=== PATIENT | male | born 1980 | race Caucasian/White ===

== ENCOUNTER 2016-07-25 19:46 | Emergency (ER) | payer MEDICARE ==
[2016-07-25] MEDS ORDERED: Sodium Chloride 0.9% 1000 ML 1,000 ML ONE (20:07)
[2016-07-25 20:24] LABS: COMPLETE URINE MICROSCOPIC? NO; Collection Type CLEAN CATCH
[2016-07-25] MEDS ORDERED: Hydromorphone 1 mg/ml Ampule IV ONE (20:29)
[2016-07-25] MEDS ORDERED: Sodium Chloride 0.9% 1000 ML 1,000 ML IV STA (20:29)
[2016-07-25] MEDS ORDERED: PROTONIX 40 MG IV IV ONE ×2 (20:29→21:07)
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
[2016-07-25 21:05] LABS: BASOPHIL % 0.1 % (0.0-0.4); Eosinophil % 1.5 % (0.00-5.0); Granulocytes % 64.7 % (36.0-66.0); Mean Cell Volume 92.9 fl (78-100); Mean Corpuscular Hemoglobin 31.6 pg (26-32); Mean Platelet Volume 10.5 fl (6-9.5); Monocytes % 10.7 % (0.0-12.0); Platelet Count 169 K/mm3 (150-450); Red Blood Count 4.53 M/mm3 (4.1-5.6); Red Cell Distribution Width 12.5 % (11.5-14.0); White Blood Count 7.8 K/mm3 (4.0-10.5)
[2016-07-25] MEDS ORDERED: Hydromorphone 1 mg/ml Ampule ONE (21:07)
[2016-07-25 21:30] LABS: ALBUMIN 3.6 g/dL (3.4-5.0); ALKALINE PHOSPHATASE 111 U/L (46-116); ANION GAP 12.5 MEQ/L (5-15); BILIRUBIN,TOTAL 0.2 mg/dL (0.2-1.0); BLOOD UREA NITROGEN 6 mg/dL (9-20); CHLORIDE 108 mEq/L (98-107); Carbon Dioxide 25.7 mEq/L (21-32); Glucose 103 MG/DL (70-110); LIPASE 71 U/L (73-393); Potassium 3.7 mEq/L (3.5-5.1); SGOT/AST 13 U/L (15-37); SGPT/ALT 12 U/L (12-78); SODIUM 143 mEq/L (136-145); Total Protein 6.6 gm/dL (6.4-8.2)
[2016-07-25] MEDS ORDERED: Phenergan 25 MG INJ IV ONE (23:12)
[2016-07-25] MEDS ORDERED: Phenergan 25 MG INJ ONE (23:18)
[2016-07-26 00:17] VITALS: BP 134/78; PULSE 87; O2SAT 96
--- NOTE | 2016-07-26 08:28 | XRAY ---
Indication: Right lower quadrant pain, nausea, vomiting, and diarrhea. History of Crohn's disease. Multiple contiguous axial images obtained through the abdomen and pelvis using 80 cc Isovue 370 contrast only. Comparison: October 04, 2015. Lung bases demonstrates minimal bibasilar dependent atelectasis. No consolidation or effusion. Heart is not enlarged. Noncontrasted stomach and bowel loops appear nonobstructed. There is again mild/moderate scattered colonic fecal debris throughout. No bowel wall thickening. Normal air-filled appendix. No free fluid/air. Stable hepatic hemangioma, nonobstructing left renal microcalculus, and right renal cyst. Remaining liver, gallbladder, pancreas, spleen, adrenal glands, kidneys, ureters, bladder, and aorta appear unremarkable. Osseous structures intact. Impression: 1. Again fecal stasis without obstruction. 2. Stable nonobstructing left renal microcalculus, right renal cyst, and hepatic hemangioma. 3. No new or acute intra-abdominal/pelvic abnormalities. Comment: Preliminary interpretation was made by [facility]. No discrepancy. CTDI 17.00
== END 2016-07-26 00:10 | disposition home or self-care (01) ==
LOC: ED 19:46
DX: N20.0 Calculus of kidney (principal); K59.00 Constipation, unspecified; K50.90 Crohn's disease, unspecified, without complications; R10.84 Generalized abdominal pain; R11.10 Vomiting, unspecified
CPT/HCPCS: 36000; 36415; 74177; 80053; 80307; 81002; 82150; 82272; 83690; 85025; 87040; 96360; 96374; 96375; 99283; 99284; J1170; J2550

== ENCOUNTER 2016-08-20 22:27 | Emergency (ER) | payer MEDICARE ==
[2016-08-20] MEDS ORDERED: Sodium Chloride 0.9% 1000 ML 1,000 ML IV STA (23:10)
[2016-08-20] MEDS ORDERED: MORPHINE SULFATE 4 MG INJ IV ONE (23:16)
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
[2016-08-20] MEDS ORDERED: Phenergan 25 MG INJ IM ONE (23:18)
[2016-08-20 23:34] LABS: BASOPHIL % 0.2 % (0.0-0.4); Eosinophil % 2.1 % (0.00-5.0); Granulocytes % 64.2 % (36.0-66.0); Lymphocytes % 20.2 % (24.0-44.0); Mean Cell Volume 92.7 fl (78-100); Mean Corpuscular Hemoglobin 31.6 pg (26-32); Mean Platelet Volume 11.2 fl (6-9.5); Monocytes % 13.3 % (0.0-12.0); Platelet Count 110 K/mm3 (150-450); Red Cell Distribution Width 12.8 % (11.5-14.0); White Blood Count 5.3 K/mm3 (4.0-10.5)
[2016-08-20] MEDS ORDERED: Phenergan 25 MG INJ ONE (23:37)
[2016-08-20] MEDS ORDERED: Sodium Chloride 0.9% 1000 ML 1,000 ML ONE (23:37)
[2016-08-20] MEDS ORDERED: MORPHINE SULFATE 4 MG INJ ONE (23:37)
[2016-08-20 23:58] LABS: ALBUMIN 3.6 g/dL (3.4-5.0); ALKALINE PHOSPHATASE 94 U/L (46-116); ANION GAP 14.2 MEQ/L (5-15); BLOOD UREA NITROGEN 8 mg/dL (9-20); CHLORIDE 106 mEq/L (98-107); Carbon Dioxide 23.6 mEq/L (21-32); Glucose 108 MG/DL (70-110); LIPASE 87 U/L (73-393); Potassium 3.9 mEq/L (3.5-5.1); SGOT/AST 12 U/L (15-37); SGPT/ALT 14 U/L (12-78); SODIUM 140 mEq/L (136-145); Total Protein 6.3 gm/dL (6.4-8.2)
[2016-08-21] LABS: BILIRUBIN,TOTAL < 0.1 mg/dL (0.2-1.0)
[2016-08-21 00:21] LABS: COMPLETE URINE MICROSCOPIC? NO; Collection Type CLEAN CATCH; Ph 6.5 (5-6)
[2016-08-21] MEDS ORDERED: MORPHINE SULFATE 4 MG INJ IV ONE (00:35)
[2016-08-21] MEDS ORDERED: MORPHINE SULFATE 4 MG INJ ONE (00:38)
[2016-08-21 00:44] VITALS: BP 104/63; PULSE 88; O2SAT 97
== END 2016-08-21 01:00 | disposition home or self-care (01) ==
LOC: ED 22:27
DX: R10.30 Lower abdominal pain, unspecified (principal); R11.2 Nausea with vomiting, unspecified; K50.90 Crohn's disease, unspecified, without complications; I10 Essential (primary) hypertension; K58.9 Irritable bowel syndrome, unspecified
CPT/HCPCS: 36000; 36415; 80053; 80307; 81002; 82150; 82272; 83690; 85025; 96360; 96372; 96374; 96376; 99284; J2270; J2550

== ENCOUNTER 2016-09-24 21:47 | Emergency (ER) | payer MEDICARE ==
[2016-09-24] MEDS ORDERED: Sodium Chloride 0.9% 1000 ML 1,000 ML IV STA (22:17)
[2016-09-24] MEDS ORDERED: Phenergan 25 MG INJ IV ONE (22:17)
[2016-09-24] MEDS ORDERED: Hydromorphone 1 mg/ml Ampule IV ONE (22:17)
--- NOTE | 2016-09-24 22:27 | ERPHSYRPT ---
- History of Present Illness Time Seen by Provider: 09/24/16 22:11 Historian: patient, other (N.N.) Exam Limitations: no limitations Patient Subjective Stated Complaint: pt states he has been having difficulty urinating and has been vomiting blood today. Triage Nursing Assessment: pt alert and oriented, answers questions approp. pt ambulatory with steady gait noted. respirations nonlabored with lungs cta. abd soft and tender to touch with bowel sounds present. Physician History: FOR THE PAST 2 DAYS PT HAS HAD RLQ ABDOMINAL PAIN, VOMITED X5 WITH SOME BLOOD AND HAS BEEN HAVING SOME DIFFICULTY URINATING. CHEST PAIN, SHORTNESS OF AIR, HEADACHE ALL DENIED. LAST BM WAS YESTERDAY AND NOT DIARRHEAL. Allergies/Adverse Reactions: ketorolac tromethamine [From Toradol] Allergy (Mild, Verified 09/24/16 22:17) metronidazole [From Flagyl] Allergy (Mild, Verified 09/24/16 22:17) Metronidazole HCl [From Flagyl] Allergy (Mild, Verified 09/24/16 22:17) Home Medications: Alprazolam [Xanax] 2 mg PO TID 02/04/14 [History] Mirtazapine [Remeron] 30 mg PO HS 02/04/14 [History] Promethazine HCl 25 mg [Phenergan 25 mg] 25 mg PO Q6H PRN PRN 02/04/14 [ History] Ranitidine HCl 300 mg PO DAILY 02/04/14 [History] Haloperidol 1 mg [Haldol 1 mg] 5 mg PO TID 11/22/15 [History] Hydrocodone/Acetaminophen [Vicodin Es 7.5-300 mg Tablet] 2 each PO BID 07/25/16 [History] Hx Tetanus, Diphtheria Vaccination/Date Given: Yes Hx Influenza Vaccination/Date Given: Yes Hx Pneumococcal Vaccination/Date Given: Yes Immunizations Up to Date: Yes - Review of Systems Constitutional: No Fever Respiratory: No Dyspnea Cardiac: No Chest Pain Abdominal/Gastrointestinal: Abdominal Pain, Vomiting Genitourinary Symptoms: Other (DIFFICULTY URINATING) Neurological: No Headache All Other Systems: Reviewed and Negative - Past Medical History Pertinent Past Medical History: Yes Neurological History: No Pertinent History ENT History: No Pertinent History Cardiac History: No Pertinent History Respiratory History: No Pertinent History Endocrine Medical History: No Pertinent History Musculoskeletal History: Other GI Medical History: Crohns Disease, Esophageal Disorder, Irritable Bowel, Ulcer , Other History: No Pertinent History Psycho-Social History: No Pertinent History Male Reproductive Disorders: Testicular Cancer Other Medical History: CELIACS DISEASE - PARKER'S ESOPHAGUS - Past Surgical History Past Surgical History: Yes Neuro Surgical History: No Pertinent History Cardiac: No Pertinent History Respiratory: No Pertinent History Gastrointestinal: No Pertinent History Genitourinary: No Pertinent History Musculoskeletal: Amputation, Orthopedic Surgery Male Surgical History: Vasectomy Other Surgical History: TRAUMATIC ARM REPAIR - RIGHT TESTICLE REMOVAL, amputation left arm - Social History Smoking Status: Current every day smoker How long have you smoked: 20 yrs Exposure to second hand smoke: Yes Drug Use: none Patient Lives Alone: No - Nursing Vital Signs Nursing Vital Signs: Initial Vital Signs Temperature 99.4 F Temperature Source Oral Pulse Rate 84 Respiratory Rate 20 Blood Pressure [Right Arm] 126/76 Pain Intensity 6 - Physical Exam General Appearance: alert Eye Exam: PERRL/EOMI Ears, Nose, Throat Exam: pharynx normal Neck Exam: normal inspection Respiratory Exam: lungs clear Cardiovascular Exam: normal heart sounds Gastrointestinal/Abdomen Exam: tenderness (MODERATE DIFFUSE ABDOMINAL TENDERNESS ), other (B.S. MODERATELY HYPERACTIVE AND NORMOTONIC) Back Exam: normal range of motion Extremity Exam: other (LEFT ARM AMPUTEE) Neurologic Exam: alert, cooperative Skin Exam: warm, dry SpO2 Interpretation: normal SpO2: 98 Oxygen Delivery: Room Air - Course Nursing assessment & vital signs reviewed: Yes - CT Exams Abdomen/Pelvis CT Interpretation: Tele-radiologist Report (NEGATIVE FOR HYDRONEPHROSIS OR OBSTRUCTING CALCULUS. LEFT KIDNEY NONOBSTRUCTIVE RENAL CALYCEAL STONE. CONSTIPATION.) Ordered Tests: Active Orders 24 hr Category Date Time Status Clean Catch Urine Specimen STAT Care 09/24/16 22:17 Active IV Insertion STAT Care 09/24/16 22:17 Active ABDOMEN AND PELVIS W/0 CONTRAS [CT] Stat Exams 09/24/16 22:17 Taken AMYLASE Stat Lab 09/24/16 22:49 Completed CBC W DIFF Stat Lab 09/24/16 22:49 Completed CMP Stat Lab 09/24/16 22:49 Completed LIPASE Stat Lab 09/24/16 22:49 Completed MAG [MAGNESIUM] Stat Lab 09/24/16 22:49 Completed UA Stat Lab 09/24/16 22:31 Completed Urine Triage Profile Stat Lab 09/24/16 22:31 Completed Medication Summary Discontinued Medications Generic Name Dose Route Start Last Admin Trade Name Kirk PRN Reason Stop Dose Admin Hydromorphone HCl 2 mg 09/24/16 22:17 09/24/16 22:36 Hydromorphone 1 Mg/Ml Ampule IV 09/24/16 22:18 2 mg STAT ONE Administration Hydromorphone HCl Confirm 09/24/16 22:34 Hydromorphone 1 Mg/Ml Ampule Administered 09/24/16 22:35 Dose 2 mg .ROUTE .STK-MED ONE Sodium Chloride 1,000 mls @ 999 mls/hr 09/24/16 22:17 09/24/16 22:35 Sodium Chloride 0.9% 1000 Ml IV 09/24/16 23:17 999 mls/hr .Q1H1M STA Administration Sodium Chloride Confirm 09/24/16 22:34 Sodium Chloride 0.9% 1000 Ml Administered 09/24/16 22:35 Dose 1,000 mls @ ud .ROUTE .STK-MED ONE Promethazine HCl 12.5 mg 09/24/16 22:17 09/24/16 22:36 Phenergan 25 Mg Inj IV 09/24/16 22:18 12.5 mg STAT ONE Administration Promethazine HCl Confirm 09/24/16 22:33 Phenergan 25 Mg Inj Administered 09/24/16 22:34 Dose 25 mg .ROUTE .STK-MED ONE Lab/Rad Data: Laboratory Result Diagrams 09/24/16 22:49 09/24/16 22:49 Laboratory Results 09/24/16 09/24/16 09/24/16 Range/Units 22:49 22:49 22:49 WBC 6.1 (4.0-10.5) K/mm3 RBC 4.29 (4.1-5.6) M/mm3 Hgb 13.5 (12.5-18.0) gm/dl Hct 39.2 L (42-50) % MCV 91.4 (78-100) fl MCH 31.5 (26-32) pg MCHC 34.4 (32-36) g/dl RDW 12.9 (11.5-14.0) % Plt Count 150 (150-450) K/mm3 MPV 9.9 H (6-9.5) fl Gran % 50.5 (36.0-66.0) % Lymphocytes % 36.4 (24.0-44.0) % Monocytes % 9.9 (0.0-12.0) % Eosinophils % 3.0 (0.00-5.0) % Basophils % 0.2 (0.0-0.4) % Basophils # 0.01 (0-0.4) Sodium 141 (136-145) mEq/L Potassium 4.0 (3.5-5.1) mEq/L Chloride 106 (98-107) mEq/L Carbon Dioxide 28.1 (21-32) mEq/L Anion Gap 11.0 (5-15) MEQ/L BUN 8 L (9-20) mg/dL Creatinine 0.85 (0.55-1.30) mg/dl Estimated GFR > 60 ML/MIN Glucose 98 (70-110) MG/DL Calcium 8.3 L (8.5-10.1) mg/dL Magnesium 1.8 (1.8-2.4) mg/dL Total Bilirubin 0.2 (0.2-1.0) mg/dL AST 16 (15-37) U/L ALT 22 (12-78) U/L Alkaline Phosphatase 115 (46-116) U/L Serum Total Protein 6.4 (6.4-8.2) gm/dL Albumin 3.4 (3.4-5.0) g/dL Amylase 19 L (25-115) U/L Lipase 66 L (73-393) U/L Ur Collection Type Urine Color (YELLOW) Urine Appearance (CLEAR) Urine pH (5-6) Ur Specific [place] (1.005-1.025) Urine Protein (Negative) Urine Glucose (UA) (NEGATIVE) mg/dL Urine Ketones (NEGATIVE) Urine Nitrite (NEGATIVE) Urine Bilirubin (NEGATIVE) Urine Urobilinogen (0-1) mg/dL Urine WBC (Auto) (NEGATIVE) Urine RBC (Auto) (0-5) Kev/ul Urine Opiates Level (NEGATIVE) Ur Methadone (NEGATIVE) Urine Barbiturates (NEGATIVE) Ur Phencyclidine (PCP) (NEGATIVE) Urine Amphetamine (NEGATIVE) U Benzodiazepine Level (NEGATIVE) Urine Cocaine (NEGATIVE) Urine Marijuana (THC) (NEGATIVE) Specimen Received 09/24/16 09/24/16 Range/Units 22:31 22:31 WBC (4.0-10.5) K/mm3 RBC (4.1-5.6) M/mm3 Hgb (12.5-18.0) gm/dl Hct (42-50) % MCV (78-100) fl MCH (26-32) pg MCHC (32-36) g/dl RDW (11.5-14.0) % Plt Count (150-450) K/mm3 MPV (6-9.5) fl Gran % (36.0-66.0) % Lymphocytes % (24.0-44.0) % Monocytes % (0.0-12.0) % Eosinophils % (0.00-5.0) % Basophils % (0.0-0.4) % Basophils # (0-0.4) Sodium (136-145) mEq/L Potassium (3.5-5.1) mEq/L Chloride (98-107) mEq/L Carbon Dioxide (21-32) mEq/L Anion Gap (5-15) MEQ/L BUN (9-20) mg/dL Creatinine (0.55-1.30) mg/dl Estimated GFR ML/MIN Glucose (70-110) MG/DL Calcium (8.5-10.1) mg/dL Magnesium (1.8-2.4) mg/dL Total Bilirubin (0.2-1.0) mg/dL AST (15-37) U/L ALT (12-78) U/L Alkaline Phosphatase (46-116) U/L Serum Total Protein (6.4-8.2) gm/dL Albumin (3.4-5.0) g/dL Amylase (25-115) U/L Lipase (73-393) U/L Ur Collection Type VOID Urine Color YELLOW (YELLOW) Urine Appearance CLEAR (CLEAR) Urine pH 5.5 (5-6) Ur Specific [place] 1.010 (1.005-1.025) Urine Protein NEGATIVE (Negative) Urine Glucose (UA) NEGATIVE (NEGATIVE) mg/dL Urine Ketones NEGATIVE (NEGATIVE) Urine Nitrite NEGATIVE (NEGATIVE) Urine Bilirubin NEGATIVE (NEGATIVE) Urine Urobilinogen 0.2 (0-1) mg/dL Urine WBC (Auto) NEGATIVE (NEGATIVE) Urine RBC (Auto) NEGATIVE (0-5) Kev/ul Urine Opiates Level POS. (NEGATIVE) Ur Methadone NEG. (NEGATIVE) Urine Barbiturates NEG. (NEGATIVE) Ur Phencyclidine (PCP) NEG. (NEGATIVE) Urine Amphetamine NEG. (NEGATIVE) U Benzodiazepine Level POS. (NEGATIVE) Urine Cocaine NEG. (NEGATIVE) Urine Marijuana (THC) NEG. (NEGATIVE) Specimen Received 09/24/16 2230 - Departure Time of Disposition: 00:10 Departure Disposition: Home Clinical Impression: ABDOMINAL PAIN, VOMITING, CROHN'S DISEASE Condition: Fair Critical Care Time: No Referrals: GENESIS PEPE [Primary Care Provider] - Instructions: Abdominal Pain-Adult, Vomiting -- Adult Additional Instructions: FOLLOW UP WITH PRIVATE DOCTOR TOMORROW. Prescriptions: Promethazine HCl 25 mg [Phenergan 25 mg] 25 mg PO Q4H PRN PRN #14 tablet PRN Reason: Nausea/Vomiting
[2016-09-24] MEDS ORDERED: Phenergan 25 MG INJ ONE (22:33)
[2016-09-24] MEDS ORDERED: Sodium Chloride 0.9% 1000 ML 1,000 ML ONE (22:34)
[2016-09-24] MEDS ORDERED: Hydromorphone 1 mg/ml Ampule ONE (22:34)
[2016-09-24 22:36] LABS: COMPLETE URINE MICROSCOPIC? NO; Collection Type VOID; Ph 5.5 (5-6)
[2016-09-24 22:57] LABS: BASOPHIL % 0.2 % (0.0-0.4); Granulocytes % 50.5 % (36.0-66.0); Lymphocytes % 36.4 % (24.0-44.0); Mean Cell Volume 91.4 fl (78-100); Mean Corpuscular Hemoglobin 31.5 pg (26-32); Mean Platelet Volume 9.9 fl (6-9.5); Monocytes % 9.9 % (0.0-12.0); Platelet Count 150 K/mm3 (150-450); Red Blood Count 4.29 M/mm3 (4.1-5.6); Red Cell Distribution Width 12.9 % (11.5-14.0); White Blood Count 6.1 K/mm3 (4.0-10.5)
[2016-09-24 23:25] LABS: ALBUMIN 3.4 g/dL (3.4-5.0); ALKALINE PHOSPHATASE 115 U/L (46-116); BILIRUBIN,TOTAL 0.2 mg/dL (0.2-1.0); BLOOD UREA NITROGEN 8 mg/dL (9-20); CHLORIDE 106 mEq/L (98-107); Carbon Dioxide 28.1 mEq/L (21-32); Glucose 98 MG/DL (70-110); LIPASE 66 U/L (73-393); SGOT/AST 16 U/L (15-37); SGPT/ALT 22 U/L (12-78); SODIUM 141 mEq/L (136-145); Total Protein 6.4 gm/dL (6.4-8.2)
[2016-09-25] MEDS ORDERED: Hydromorphone 1 mg/ml Ampule IV ONE (00:13)
[2016-09-25] MEDS ORDERED: Phenergan 25 MG INJ IV ONE (00:13)
[2016-09-25] MEDS ORDERED: Hydromorphone 1 mg/ml Ampule ONE (00:27)
[2016-09-25] MEDS ORDERED: Phenergan 25 MG INJ ONE (00:27)
[2016-09-25 00:58] VITALS: BP 120/70; PULSE 69; O2SAT 100
--- NOTE | 2016-09-25 09:10 | XRAY ---
Indication: Right lower quadrant pain, nausea, vomiting, and diarrhea. History of Crohn's disease. Multiple contiguous axial images obtained through the abdomen and pelvis without contrast as ordered. Comparison: [place] 2016. Lung bases again demonstrates minimal bibasilar dependent atelectasis. No consolidation or effusion. Heart is not enlarged. Noncontrasted stomach and bowel loops appear nonobstructed. There is again mild/moderate scattered colonic fecal debris throughout. No bowel wall thickening. Normal air-filled appendix. No free fluid/air. Stable hepatic hemangioma, nonobstructing left renal microcalculus, and right renal cyst. Remaining liver, gallbladder, pancreas, spleen, adrenal glands, kidneys, ureters, bladder, and aorta appear unremarkable for noncontrast exam. Osseous structures intact. Impression: 1. Again fecal stasis without obstruction. 2. Stable nonobstructing left renal microcalculus, right renal cyst, and hepatic hemangioma. 3. No new/acute intra-abdominal/pelvic abnormalities on this noncontrast exam. Comment: Preliminary interpretation was made by [facility]. No discrepancy. CTDI 14.60
== END 2016-09-25 00:58 | disposition home or self-care (01) ==
LOC: ED 21:47
DX: R10.31 Right lower quadrant pain (principal); R11.10 Vomiting, unspecified; K50.90 Crohn's disease, unspecified, without complications
CPT/HCPCS: 36000; 36415; 74176; 80053; 80307; 81002; 82150; 83690; 83735; 85025; 96360; 96374; 96375; 96376; 99284; J1170; J2550

== ENCOUNTER 2016-10-27 20:52 | Emergency (ER) | payer MEDICARE ==
[2016-10-27] MEDS ORDERED: Sodium Chloride 0.9% 1000 ML 1,000 ML IV STA (21:52)
[2016-10-27] MEDS ORDERED: BENADRYL 50 MG/ML IV ONE (21:52)
[2016-10-27] MEDS ORDERED: ZOFRAN ODT 4 MG PO ONE (21:52)
[2016-10-27] MEDS ORDERED: Hydromorphone 1 mg/ml Ampule IV ONE ×2 (21:52→23:04)
--- NOTE | 2016-10-27 21:54 | ERPHSYRPT ---
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 alert/oriented - unpleasant affect. skin pwd - no rash/injury. resps easy - non-labored Physician History: PATIENT WITH HISTORY OF CROHNS DISEASE COMPLAINS OF GENERALIZED ABDOMINAL PAINS ASSOCIATED WITH EMESIS X 2 TONIGHT. DENIES MELENA, FEVER OR CHILLS. Timing/Duration: today Activities at Onset: none Quality: throbbing Abdominal Pain Onset Location: generalized abdomen Pain Radiation: no radiation Severity of Pain-Max: severe Severity of Pain-Current: severe Modifying Factors: Improves With: vomiting Associated Symptoms: nausea Previous symptoms: same symptoms as today Allergies/Adverse Reactions: ketorolac tromethamine [From Toradol] Allergy (Mild, Verified 10/27/16 21:37) metronidazole [From Flagyl] Allergy (Mild, Verified 10/27/16 21:37) Metronidazole HCl [From Flagyl] Allergy (Mild, Verified 10/27/16 21:37) Home Medications: Alprazolam [Xanax] 2 mg PO TID 02/04/14 [History] Mirtazapine [Remeron] 30 mg PO HS 02/04/14 [History] Promethazine HCl 25 mg [Phenergan 25 mg] 25 mg PO Q6H PRN PRN 02/04/14 [ History] Ranitidine HCl 300 mg PO DAILY 02/04/14 [History] Haloperidol 1 mg [Haldol 1 mg] 5 mg PO TID 11/22/15 [History] Hydrocodone/Acetaminophen [Vicodin Es 7.5-300 mg Tablet] 2 each PO BID 07/25/16 [History] Hx Tetanus, Diphtheria Vaccination/Date Given: Yes Hx Influenza Vaccination/Date Given: Yes Hx Pneumococcal Vaccination/Date Given: Yes Immunizations Up to Date: Yes - Review of Systems Constitutional: No Fever, No Chills Eyes: No Symptoms Ears, Nose, & Throat: No Symptoms Respiratory: No Cough, No Dyspnea Cardiac: No Chest Pain, No Edema, No Syncope Abdominal/Gastrointestinal: Abdominal Pain, Nausea, Vomiting, No Diarrhea Genitourinary Symptoms: No Symptoms, No Dysuria Musculoskeletal: No Symptoms, No Back Pain, No Neck Pain Skin: No Rash Neurological: No Dizziness, No Focal Weakness, No Sensory Changes Psychological: No Symptoms Endocrine: No Symptoms Hematologic/Lymphatic: No Symptoms All Other Systems: Reviewed and Negative - Past Medical History Pertinent Past Medical History: Yes Neurological History: No Pertinent History ENT History: No Pertinent History Cardiac History: No Pertinent History Respiratory History: No Pertinent History Endocrine Medical History: No Pertinent History Musculoskeletal History: Other GI Medical History: Crohns Disease, Esophageal Disorder, Irritable Bowel, Ulcer , Other History: No Pertinent History Psycho-Social History: No Pertinent History Male Reproductive Disorders: Testicular Cancer Other Medical History: CELIACS DISEASE - PARKER'S ESOPHAGUS - Past Surgical History Past Surgical History: Yes Neuro Surgical History: No Pertinent History Cardiac: No Pertinent History Respiratory: No Pertinent History Gastrointestinal: No Pertinent History Genitourinary: No Pertinent History Musculoskeletal: Amputation, Orthopedic Surgery Male Surgical History: Vasectomy Other Surgical History: TRAUMATIC ARM REPAIR - RIGHT TESTICLE REMOVAL, amputation left arm - Social History Smoking Status: Current every day smoker How long have you smoked: 20 yrs Exposure to second hand smoke: No Drug Use: none Patient Lives Alone: No - Nursing Vital Signs Nursing Vital Signs: Initial Vital Signs Temperature 98.3 F Temperature Source Oral Pulse Rate 70 Respiratory Rate 14 Blood Pressure [Right Arm] 119/82 Pain Intensity 7 - Physical Exam General Appearance: moderate distress Eye Exam: PERRL/EOMI, eyes nml inspection Ears, Nose, Throat Exam: normal ENT inspection, pharynx normal, moist mucous membranes Neck Exam: normal inspection, non-tender, supple, full range of motion Respiratory Exam: normal breath sounds, lungs clear, No respiratory distress Cardiovascular Exam: regular rate/rhythm, normal heart sounds Gastrointestinal/Abdomen Exam: soft, normal bowel sounds, No tenderness ( PERIUMBILICAL ,LLQ TENDERNESS), No mass Back Exam: normal inspection, normal range of motion, No CVA tenderness, No vertebral tenderness Extremity Exam: normal inspection, normal range of motion, pelvis stable Neurologic Exam: alert, oriented x 3, cooperative, normal mood/affect, nml cerebellar function, sensation nml, No motor deficits Skin Exam: normal color, warm, dry SpO2 Interpretation: normal SpO2: 100 Oxygen Delivery: Room Air - CT Exams Abdomen/Pelvis CT Interpretation: Tele-radiologist Report (NORMAL APPENDIX, A MODERATE AMOUNT OF STOOL IN THE COLON) Ordered Tests: Active Orders 24 hr Category Date Time Status IV Insertion STAT Care 10/27/16 21:52 Active ABDOMEN AND PELVIS W CONTRAST [CT] Stat Exams 10/27/16 21:52 Taken AMYLASE Stat Lab 10/27/16 22:19 Completed CBC W DIFF Stat Lab 10/27/16 22:19 Completed CMP Stat Lab 10/27/16 22:19 Completed LIPASE Stat Lab 10/27/16 22:19 Completed UA Stat Lab 10/27/16 22:30 Completed Urine Triage Profile Stat Lab 10/27/16 22:30 Completed Medication Summary Discontinued Medications Generic Name Dose Route Start Last Admin Trade Name Freq PRN Reason Stop Dose Admin Diphenhydramine HCl 25 mg 10/27/16 21:52 10/27/16 22:27 Benadryl 50 Mg/Ml IV 10/27/16 21:53 25 mg STAT ONE Administration Diphenhydramine HCl Confirm 10/27/16 22:18 Benadryl 50 Mg/Ml Administered 10/27/16 22:19 Dose 50 mg .ROUTE .STK-MED ONE Hydromorphone HCl 1 mg 10/27/16 21:52 10/27/16 22:27 Hydromorphone 1 Mg/Ml Ampule IV 10/27/16 21:53 1 mg STAT ONE Administration Hydromorphone HCl Confirm 10/27/16 22:18 Hydromorphone 1 Mg/Ml Ampule Administered 10/27/16 22:19 Dose 1 mg .ROUTE .STK-MED ONE Hydromorphone HCl 1 mg 10/27/16 23:04 10/27/16 23:10 Hydromorphone 1 Mg/Ml Ampule IV 10/27/16 23:05 1 mg STAT ONE Administration Hydromorphone HCl Confirm 10/27/16 23:08 Hydromorphone 1 Mg/Ml Ampule Administered 10/27/16 23:09 Dose 1 mg .ROUTE .STK-MED ONE Sodium Chloride 1,000 mls @ 999 mls/hr 10/27/16 21:52 10/27/16 22:27 Sodium Chloride 0.9% 1000 Ml IV 10/27/16 22:52 999 mls/hr .Q1H1M STA Administration Sodium Chloride Confirm 10/27/16 22:18 Sodium Chloride 0.9% 1000 Ml Administered 10/27/16 22:19 Dose 1,000 mls @ ud .ROUTE .STK-MED ONE Ondansetron HCl 4 mg 10/27/16 21:52 10/27/16 22:27 Zofran Odt 4 Mg PO 10/27/16 21:53 4 mg STAT ONE Administration Ondansetron HCl Confirm 10/27/16 22:18 Zofran 4 Mg/2 Ml Vial Administered 10/27/16 22:19 Dose 4 mg .ROUTE .STK-MED ONE Ondansetron HCl Confirm 10/27/16 22:25 Zofran Odt 4 Mg Administered 10/27/16 22:26 Dose 4 mg .ROUTE .STK-MED ONE Ondansetron HCl 4 mg 10/27/16 23:04 10/27/16 23:10 Zofran 4 Mg/2 Ml Vial IV 10/27/16 23:05 4 mg STAT ONE Administration Ondansetron HCl Confirm 10/27/16 23:08 Zofran 4 Mg/2 Ml Vial Administered 10/27/16 23:09 Dose 4 mg .ROUTE .STK-MED ONE Lab/Rad Data: Laboratory Result Diagrams 10/27/16 22:19 10/27/16 22:19 Laboratory Results 10/27/16 10/27/16 10/27/16 Range/Units 22:30 22:30 22:19 WBC (4.0-10.5) K/mm3 RBC (4.1-5.6) M/mm3 Hgb (12.5-18.0) gm/dl Hct (42-50) % MCV (78-100) fl MCH (26-32) pg MCHC (32-36) g/dl RDW (11.5-14.0) % Plt Count (150-450) K/mm3 MPV (6-9.5) fl Gran % (36.0-66.0) % Lymphocytes % (24.0-44.0) % Monocytes % (0.0-12.0) % Eosinophils % (0.00-5.0) % Basophils % (0.0-0.4) % Basophils # (0-0.4) Sodium 139 (136-145) mEq/L Potassium 4.0 (3.5-5.1) mEq/L Chloride 106 (98-107) mEq/L Carbon Dioxide 27.2 (21-32) mEq/L Anion Gap 9.3 (5-15) MEQ/L BUN 12 (9-20) mg/dL Creatinine 0.88 (0.55-1.30) mg/dl Estimated GFR > 60 ML/MIN Glucose 90 (70-110) MG/DL Calcium 9.1 (8.5-10.1) mg/dL Total Bilirubin 0.2 (0.2-1.0) mg/dL AST 18 (15-37) U/L ALT 15 (12-78) U/L Alkaline Phosphatase 104 (46-116) U/L Serum Total Protein 6.7 (6.4-8.2) gm/dL Albumin 3.6 (3.4-5.0) g/dL Amylase 22 L (25-115) U/L Lipase 63 L (73-393) U/L Ur Collection Type CLEAN CATCH Urine Color YELLOW (YELLOW) Urine Appearance CLEAR (CLEAR) Urine pH 7.5 (5-6) Ur Specific [place] 1.015 (1.005-1.025) Urine Protein NEGATIVE (Negative) Urine Glucose (UA) NEGATIVE (NEGATIVE) mg/dL Urine Ketones NEGATIVE (NEGATIVE) Urine Nitrite NEGATIVE (NEGATIVE) Urine Bilirubin NEGATIVE (NEGATIVE) Urine Urobilinogen 1 (0-1) mg/dL Urine WBC (Auto) NEGATIVE (NEGATIVE) Urine RBC (Auto) NEGATIVE (0-5) Kev/ul Urine Opiates Level POS. (NEGATIVE) Ur Methadone NEG. (NEGATIVE) Urine Barbiturates NEG. (NEGATIVE) Ur Phencyclidine (PCP) NEG. (NEGATIVE) Urine Amphetamine NEG. (NEGATIVE) U Benzodiazepine Level POS. (NEGATIVE) Urine Cocaine NEG. (NEGATIVE) Urine Marijuana (THC) NEG. (NEGATIVE) Specimen Received [id number] 10/27/16 Range/Units 22:19 WBC 5.1 (4.0-10.5) K/mm3 RBC 4.30 (4.1-5.6) M/mm3 Hgb 13.7 (12.5-18.0) gm/dl Hct 40.1 L (42-50) % MCV 93.3 (78-100) fl MCH 31.9 (26-32) pg MCHC 34.2 (32-36) g/dl RDW 12.7 (11.5-14.0) % Plt Count 158 (150-450) K/mm3 MPV 10.5 H (6-9.5) fl Gran % 46.2 (36.0-66.0) % Lymphocytes % 36.5 (24.0-44.0) % Monocytes % 13.4 H (0.0-12.0) % Eosinophils % 3.7 (0.00-5.0) % Basophils % 0.2 (0.0-0.4) % Basophils # 0.01 (0-0.4) Sodium (136-145) mEq/L Potassium (3.5-5.1) mEq/L Chloride (98-107) mEq/L Carbon Dioxide (21-32) mEq/L Anion Gap (5-15) MEQ/L BUN (9-20) mg/dL Creatinine (0.55-1.30) mg/dl Estimated GFR ML/MIN Glucose (70-110) MG/DL Calcium (8.5-10.1) mg/dL Total Bilirubin (0.2-1.0) mg/dL AST (15-37) U/L ALT (12-78) U/L Alkaline Phosphatase (46-116) U/L Serum Total Protein (6.4-8.2) gm/dL Albumin (3.4-5.0) g/dL Amylase (25-115) U/L Lipase (73-393) U/L Ur Collection Type Urine Color (YELLOW) Urine Appearance (CLEAR) Urine pH (5-6) Ur Specific [place] (1.005-1.025) Urine Protein (Negative) Urine Glucose (UA) (NEGATIVE) mg/dL Urine Ketones (NEGATIVE) Urine Nitrite (NEGATIVE) Urine Bilirubin (NEGATIVE) Urine Urobilinogen (0-1) mg/dL Urine WBC (Auto) (NEGATIVE) Urine RBC (Auto) (0-5) Kev/ul Urine Opiates Level (NEGATIVE) Ur Methadone (NEGATIVE) Urine Barbiturates (NEGATIVE) Ur Phencyclidine (PCP) (NEGATIVE) Urine Amphetamine (NEGATIVE) U Benzodiazepine Level (NEGATIVE) Urine Cocaine (NEGATIVE) Urine Marijuana (THC) (NEGATIVE) Specimen Received - Progress Progress: improved Progress Note: 10/27/16 23:08 PATIENT GIVEN NORMAL SALINE 1 LILTER /HR, ZOFRAN 4MG, DILAUDID 1MG IV Counseled pt/family regarding: lab results, diagnosis, need for follow-up - Departure Time of Disposition: 23:45 Departure Disposition: Home Clinical Impression: ABDOMINAL PAIN, CONSTIPATION Condition: Stable Critical Care Time: No Additional Instructions: CONTINUE ALL CURRENT MEDICATIONS, AND FOLLOWUP WITH YOUR PRIMARY CARE PHYSICIAN TOMORROW. ZOFRAN 4MG EVERY 4 HOURS FOR NAUSEA NEEDED. Prescriptions: Ondansetron [Zofran Odt] 4 mg PO Q4H PRN PRN #5 tab.rapdis PRN Reason: Nausea
[2016-10-27] MEDS ORDERED: Sodium Chloride 0.9% 1000 ML 1,000 ML ONE (22:18)
[2016-10-27] MEDS ORDERED: BENADRYL 50 MG/ML ONE (22:18)
[2016-10-27] MEDS ORDERED: Hydromorphone 1 mg/ml Ampule ONE ×2 (22:18→23:08)
[2016-10-27] MEDS ORDERED: Zofran 4 MG/2 ML VIAL ONE ×2 (22:18→23:08)
[2016-10-27] MEDS ORDERED: ZOFRAN ODT 4 MG ONE (22:25)
[2016-10-27 22:27] LABS: BASOPHIL % 0.2 % (0.0-0.4); Eosinophil % 3.7 % (0.00-5.0); Granulocytes % 46.2 % (36.0-66.0); Lymphocytes % 36.5 % (24.0-44.0); Mean Cell Volume 93.3 fl (78-100); Mean Corpuscular Hemoglobin 31.9 pg (26-32); Mean Platelet Volume 10.5 fl (6-9.5); Monocytes % 13.4 % (0.0-12.0); Platelet Count 158 K/mm3 (150-450); Red Cell Distribution Width 12.7 % (11.5-14.0); White Blood Count 5.1 K/mm3 (4.0-10.5)
[2016-10-27 22:43] LABS: ALBUMIN 3.6 g/dL (3.4-5.0); ALKALINE PHOSPHATASE 104 U/L (46-116); ANION GAP 9.3 MEQ/L (5-15); BILIRUBIN,TOTAL 0.2 mg/dL (0.2-1.0); BLOOD UREA NITROGEN 12 mg/dL (9-20); CHLORIDE 106 mEq/L (98-107); Carbon Dioxide 27.2 mEq/L (21-32); Glucose 90 MG/DL (70-110); LIPASE 63 U/L (73-393); SGOT/AST 18 U/L (15-37); SGPT/ALT 15 U/L (12-78); SODIUM 139 mEq/L (136-145); Total Protein 6.7 gm/dL (6.4-8.2)
[2016-10-27 23:04] VITALS: O2SAT 100
[2016-10-27] MEDS ORDERED: Zofran 4 MG/2 ML VIAL IV ONE (23:04)
[2016-10-27 23:14] LABS: Collection Type CLEAN CATCH
[2016-10-27 23:15] LABS: COMPLETE URINE MICROSCOPIC? NO; Ph 7.5 (5-6)
[2016-10-27 23:39] VITALS: BP 103/68; PULSE 72
--- NOTE | 2016-10-28 09:04 | XRAY ---
Indication: Abdominal pain. Vomiting blood. History of Crohn's disease. Multiple contiguous axial images obtained through the abdomen and pelvis using 80 cc Isovue 370 contrast. Comparison: September 24, 2016. Lung bases again demonstrates minimal bibasilar dependent atelectasis. No consolidation or effusion. Heart is not enlarged. Noncontrasted stomach and bowel loops again appear nonobstructed. There remains moderate scattered colonic fecal debris throughout. No bowel wall thickening. Normal air-filled appendix. No free fluid/air. Stable right lobe hepatic hemangioma, nonobstructing left renal microcalculus, and right renal cyst. Remaining liver, gallbladder, pancreas, spleen, adrenal glands, kidneys, ureters, bladder, and aorta appear unremarkable for noncontrast exam. No pathologic retroperitoneal lymphadenopathy. Osseous structures intact. Impression: 1. Again fecal stasis without obstruction. 2. Stable nonobstructing left renal microcalculus, right renal cyst, and hepatic hemangioma. 3. No new/acute intra-abdominal/pelvic abnormalities. Comment: Preliminary interpretation was made by [facility] [[email or web address] No discrepancy. CTDI 9.77
== END 2016-10-27 23:51 | disposition home or self-care (01) ==
LOC: ED 20:52
DX: R10.84 Generalized abdominal pain (principal); K59.00 Constipation, unspecified; Z79.899 Other long term (current) drug therapy
CPT/HCPCS: 36000; 36415; 74177; 80053; 80307; 81002; 82150; 83690; 85025; 96360; 96374; 96375; 96376; 99284; J1170; J1200; J2405; Q0162